=== PATIENT | male | born 1955 | race Caucasian/White ===

== ENCOUNTER 2020-05-05 07:27 | Day surgery (SDC) | payer OTHER ==
[~2020-05-05 07:27] MED LIST: Lactated Ringers 1,000 ML IV SCH; Sodium Chloride 0.9% 10 ML Syringe FLUSH PRN
[2020-05-05] MEDS ORDERED: Midazolam 1 MG/ML 2 ML SDV IV ONE (07:28)
[2020-05-05] MEDS ORDERED: Propofol 200 MG/20 ML SDV IV ONE (07:28)
[2020-05-05] MEDS ORDERED: Simethicone Drops 40 MG/0.6 ML 30 ML Bottle PO ONE (08:49)
--- NOTE | 2020-05-05 09:01 | PCM.OPNOTE ---
- General Post-Op/Procedure Note Date of Surgery/Procedure: 05/05/20 Operative Procedure(s): c scope with cold forcep biopsy Findings: rectal polyp Pre Op Diagnosis: colon cancer screening Post-Op Diagnosis: rectal polyp Anesthesia Technique: MAC Primary Surgeon: Oziel Pham Anesthesia Provider: Gita Kruse Pathology: rectal polyp Complications: None Condition: Good Free Text/Narrative:: see dictation #[id number]
--- NOTE | 2020-05-05 10:31 | OR ---
DATE OF OPERATION: 05/05/2020 SURGEON: Oziel Pham MD PROCEDURE PERFORMED: Colonoscopy with cold forceps biopsy. PREOPERATIVE DIAGNOSIS: Need for colon cancer screening. POSTOPERATIVE DIAGNOSIS: Rectal polyp. INDICATIONS FOR PROCEDURE: This is a 64-year-old white male who presents for screening colonoscopy. He is currently without any complaints. DESCRIPTION OF PROCEDURE: After an excellent IV sedation was administered by Anesthesia, a digital rectal exam was performed. No marked abnormality was noted. Flexible colonoscope was inserted and advanced to the cecum. Prep was excellent. Following findings were noted: Ascending colon, unremarkable. Transverse colon, unremarkable. Descending colon, unremarkable. At the proximal sigmoid, a small 5 mm polyp, biopsied with cold biopsy forceps and sent for permanent. The remainder of the colonic exam was unremarkable. The patient tolerated the procedure well. Results will be sent via letter. /[id number] /MODL
== END 2020-05-05 10:00 | disposition home or self-care (01) ==
LOC: FB.SDS 07:27
PROVIDERS: ATTEND Surgery
DX: Z12.11 Encounter for screening for malignant neoplasm of colon (principal); K62.89 Other specified diseases of anus and rectum; K62.1 Rectal polyp; E11.9 Type 2 diabetes mellitus without complications; I25.10 Atherosclerotic heart disease of native coronary artery without angina pectoris; E78.5 Hyperlipidemia, unspecified; F32.9 Major depressive disorder, single episode, unspecified; Z79.899 Other long term (current) drug therapy; Z79.82 Long term (current) use of aspirin; Z79.84 Long term (current) use of oral hypoglycemic drugs
CPT/HCPCS: 00812-QZ; 82962; A9270-GY; J2250; J2704; J7120

== ENCOUNTER 2024-11-20 08:08 | Day surgery (SDC) | payer OTHER ==
[2024-11-20] MEDS ORDERED: Propofol 200 MG/20 ML SDV IV ONE (08:09)
[2024-11-20] MEDS ORDERED: Midazolam 1 MG/ML 2 ML SDV IV ONE (08:09)
[2024-11-20] MEDS ORDERED: Ketamine 500 mg/10 ML MDV IV ONE (08:09)
[2024-11-20] MEDS ORDERED: Sodium Chloride 0.9% 10 ML Syringe FLUSH PRN (08:15)
[2024-11-20] MEDS: Lactated Ringers 1,000 ML IV SCH (09:08)
== END 2024-11-20 11:23 | disposition home or self-care (01) ==
LOC: FB.SDS 08:08
PROVIDERS: ATTEND Surgery
DX: K52.9 Noninfective gastroenteritis and colitis, unspecified (principal); E11.9 Type 2 diabetes mellitus without complications; I25.10 Atherosclerotic heart disease of native coronary artery without angina pectoris; I10 Essential (primary) hypertension; Z79.84 Long term (current) use of oral hypoglycemic drugs; Z79.82 Long term (current) use of aspirin; Z79.4 Long term (current) use of insulin; Z88.0 Allergy status to penicillin; Z91.09 Other allergy status, other than to drugs and biological substances; Z91.013 Allergy to seafood; Z79.899 Other long term (current) drug therapy
CPT/HCPCS: 00811; 88305; A9270-GY; J2250; J2704; J3490; J7120